=== PATIENT | female | born 1985 | race American Indian/Alaskan Native ===

== ENCOUNTER 2019-03-21 20:08 | Emergency (ER) | payer SELFPAY ==
[2019-03-21 20:28] VITALS: BP 129/80
--- NOTE | 2019-03-21 20:29 | Event Note ---
ED Screening Note Date of service: 03/21/19 Time: 20:26 ED Screening Note: 33 y/o female comes in for sharp chest pain since Wednesday. This initial assessment/diagnostic orders/clinical plan/treatment(s) is/are subject to change based on patients health status, clinical progression and re-assessment by fellow clinical providers in the ED. Further treatment and workup at subsequent clinical providers discretion. Patient/guardian urged not to elope from the ED as their condition may be serious if not clinically assessed and managed. Initial orders include:
[2019-03-21 21:14] LABS: Basophils % (Auto) 0.4 % (0.0-1.8); Eosinophils # (Auto) 0.1 K/mm3 (0.0-0.4); Eosinophils % (Auto) 1.7 % (0.0-4.3); Hematocrit 30.9 % (30.3-42.9); Hemoglobin 10.9 gm/dl (10.1-14.3); Lymphocytes # (Auto) 2.8 K/mm3 (1.2-5.4); Lymphocytes % (Auto) 47.4 % (13.4-35.0); Mean Corpuscular HGB Conc 35 % (30-34); Mean Corpuscular Volume 90 fl (79-97); Monocytes # (Auto) 0.5 K/mm3 (0.0-0.8); Monocytes % (Auto) 9.1 % (0.0-7.3); Platelet Count 208 K/mm3 (140-440); Red Blood Count 3.45 M/mm3 (3.65-5.03); Red Cell Distribution Width 11.9 % (13.2-15.2)
[2019-03-21 21:36] LABS: Alanine Aminotransferase 7 units/L (7-56); Albumin 4.5 g/dL (3.9-5); BUN/Creatinine Ratio 25; Blood Urea Nitrogen 15 mg/dL (7-17); Calcium 8.9 mg/dL (8.4-10.2); Hemolysis Index 6
[2019-03-21] MEDS ORDERED: NORCO 5/325 PO ONE (22:21)
--- NOTE | 2019-03-21 22:33 | XRay Report ---
CHEST 2 VIEWS INDICATION / CLINICAL INFORMATION: Chest Pain. COMPARISON: None available. FINDINGS: SUPPORT DEVICES: None. HEART / MEDIASTINUM: No significant abnormality. LUNGS / PLEURA: No significant pulmonary or pleural abnormality. No pneumothorax. ADDITIONAL FINDINGS: No significant additional findings. IMPRESSION: 1. No acute findings. Signer Name: Pio Peterson MD Signed: 03/21/2019 10:28 PM Workstation Name: [id number]
--- NOTE | 2019-03-21 23:02 | Emergency Department Report ---
ED General Adult HPI - General Chief complaint: Chest Pain Stated complaint: CHEST PAIN Time Seen by Provider: 03/21/19 20:25 Source: patient Mode of arrival: Ambulatory Limitations: No Limitations - History of Present Illness Initial comments: Patient is a 33-year-old -E[place]ian female who presents for right lateral chest wall pain times one week pain described as 5/10 sharp exacerbated by deep inspiration relieved by rest . He denies fall injury or trauma there is no wheezing no fever no shortness of breath no deformity no bruising Onset/Timin -: week(s) Location: chest (right lateral chest wall ) Radiation: flank Severity scale (0 -10): 0 Quality: stabbing Consistency: constant Improves with: rest Worsens with: other (inspiration) Associated Symptoms: chest pain, cough. denies: diaphoresis, fever/chills, headaches, loss of appetite, malaise Treatments Prior to Arrival: none - Related Data Previous Rx's Medication Instructions Recorded Last Taken Type Cyclobenzaprine [Flexeril] 10 mg PO TID PRN #30 tablet 03/21/19 Unknown Rx Menthol/Camphor [[place] 1 applicatio TP QID PRN #1 tube 03/21/19 Unknown Rx Ointment] Naproxen [Naprosyn TAB] 500 mg PO BID PRN #30 tablet 03/21/19 Unknown Rx Allergies Allergy/AdvReac Type Severity Reaction Status Date / Time No Known Allergies Allergy Verified 03/21/19 20:10 ED Review of Systems ROS: Stated complaint: CHEST PAIN Other details as noted in HPI Constitutional: denies: chills, fever Eyes: denies: eye pain, eye discharge, vision change ENT: congestion. denies: ear pain, throat pain Respiratory: cough. denies: shortness of breath, wheezing Cardiovascular: chest pain. denies: palpitations, dyspnea on exertion, orthopnea, edema, syncope, paroxysmal nocturnal dyspnea Endocrine: no symptoms reported Gastrointestinal: denies: abdominal pain, nausea, vomiting, diarrhea Genitourinary: denies: urgency, dysuria, discharge Musculoskeletal: denies: back pain, joint swelling, arthralgia, myalgia Skin: denies: rash, lesions Neurological: denies: headache, weakness, paresthesias Psychiatric: denies: anxiety, depression Hematological/Lymphatic: denies: easy bleeding, easy bruising ED Past Medical Hx - Social History Smoking Status: Never Smoker Substance Use Type: Alcohol, Marijuana - Medications Home Medications: Home Medications Medication Instructions Recorded Confirmed Last Taken Type Cyclobenzaprine [Flexeril] 10 mg PO TID PRN #30 tablet 03/21/19 Unknown Rx Menthol/Camphor [[place] 1 applicatio TP QID PRN #1 tube 03/21/19 Unknown Rx Ointment] Naproxen [Naprosyn TAB] 500 mg PO BID PRN #30 tablet 03/21/19 Unknown Rx ED Physical Exam - General Limitations: No Limitations General appearance: alert, in no apparent distress - Head Head exam: Present: atraumatic, normocephalic, normal inspection - Eye Eye exam: Present: normal appearance, PERRL, EOMI Pupils: Present: normal accommodation - ENT ENT exam: Present: normal orophraynx, mucous membranes moist, TM's normal bilaterally, normal external ear exam - Neck Neck exam: Present: normal inspection, full ROM. Absent: tenderness, meningismus, lymphadenopathy, thyromegaly - Respiratory Respiratory exam: Present: normal lung sounds bilaterally, chest wall tenderness (right lateral ). Absent: respiratory distress, wheezes, rhonchi, accessory muscle use, prolonged expiratory - Cardiovascular Cardiovascular Exam: Present: regular rate, normal rhythm, normal heart sounds. Absent: systolic murmur, diastolic murmur, rubs, gallop - GI/Abdominal GI/Abdominal exam: Present: soft, normal bowel sounds. Absent: distended, ten derness, guarding, rebound, rigid, mass, pulsatile mass - Rectal Rectal exam: Present: deferred - External exam: Present: other (deferred ) - Extremities Exam Extremities exam: Present: normal inspection, full ROM, normal capillary refill, calf tenderness. Absent: tenderness, pedal edema, joint swelling - Back Exam Back exam: Present: normal inspection, full ROM, rash noted. Absent: tenderness, CVA tenderness (R), CVA tenderness (L), muscle spasm, paraspinal tenderness, vertebral tenderness - Neurological Exam Neurological exam: Present: alert, oriented X3, CN II-XII intact, normal gait, reflexes normal - Psychiatric Psychiatric exam: Present: normal affect, normal mood - Skin Skin exam: Present: warm, dry, intact, normal color. Absent: rash ED Course Vital Signs 03/21/19 03/21/19 20:13 20:26 Temperature 97.9 F 97.9 F Pulse Rate 90 90 Respiratory 18 Rate Blood Pressure 129/86 129/80 O2 Sat by Pulse 100 100 Oximetry ED Medical Decision Making - Lab Data Result diagrams: 03/21/19 20:39 03/21/19 20:39 Lab Results 03/21/19 03/21/19 03/21/19 Range/Units 20:39 20:39 20:39 WBC 5.9 (4.5-11.0) K/mm3 RBC 3.45 L (3.65-5.03) M/mm3 Hgb 10.9 (10.1-14.3) gm/dl Hct 30.9 (30.3-42.9) % MCV 90 (79-97) fl MCH 32 (28-32) pg MCHC 35 H (30-34) % RDW 11.9 L (13.2-15.2) % Plt Count 208 (140-440) K/mm3 Lymph % (Auto) 47.4 H (13.4-35.0) % [place] % (Auto) 9.1 H (0.0-7.3) % Eos % (Auto) 1.7 (0.0-4.3) % Baso % (Auto) 0.4 (0.0-1.8) % Lymph # 2.8 (1.2-5.4) K/mm3 [place] # 0.5 (0.0-0.8) K/mm3 Eos # 0.1 (0.0-0.4) K/mm3 Baso # 0.0 (0.0-0.1) K/mm3 Seg Neutrophils % 41.4 (40.0-70.0) % Seg Neutrophils # 2.4 (1.8-7.7) K/mm3 Sodium 138 (137-145) mmol/L Potassium 3.6 (3.6-5.0) mmol/L Chloride 102.3 (98-107) mmol/L Carbon Dioxide 24 (22-30) mmol/L Anion Gap 15 mmol/L BUN 15 (7-17) mg/dL Creatinine 0.6 L (0.7-1.2) mg/dL Estimated GFR > 60 ml/min BUN/Creatinine Ratio 25 % Glucose 94 (65-100) mg/dL Calcium 8.9 (8.4-10.2) mg/dL Total Bilirubin 0.60 (0.1-1.2) mg/dL AST 16 (5-40) units/L ALT 7 (7-56) units/L Alkaline Phosphatase 60 (35-129) units/L Troponin T < 0.010 (0.00-0.029) ng/mL Total Protein 8.6 H (6.3-8.2) g/dL Albumin 4.5 (3.9-5) g/dL Albumin/Globulin Ratio 1.1 % Lipase 8 L (13-60) units/L HCG, Qual Negative (Negative) - EKG Data -: EKG Interpreted by Sd EKG shows normal: sinus rhythm, axis, intervals, QRS complexes, ST-T waves Rate: normal - EKG Data When compared to previous EKG there are: previous EKG unavailable Interpretation: normal EKG (EKG interp by ed attending no ST elevated mI normal ekg ) - Radiology Data Radiology results: report reviewed, image reviewed Ordering Physician: JORDI IYER Date of Service: 03/21/19 Procedure(s): XR chest routine 2V Accession Number(s): [id number] cc: JORDI IYER Fluoro Time In Minutes: CHEST 2 VIEWS INDICATION / CLINICAL INFORMATION: Chest Pain. COMPARISON: None available. FINDINGS: SUPPORT DEVICES: None. HEART / MEDIASTINUM: No significant abnormality. LUNGS / PLEURA: No significant pulmonary or pleural abnormality. No pneumothorax . ADDITIONAL FINDINGS: No significant additional findings. IMPRESSION: 1. No acute findings. Signer Name: Pio Peterson MD Signed: 03/21/2019 10:28 PM Workstation Name: [id number] Transcribed By: DOMINICK Dictated By: Pio Peterson MD Electronically Authenticated By: Pio Peterson MD Signed Date/Time: 03/21/19 7133 - Medical Decision Making This is chest wall pain , hear score is 0, JAIMIE score: 0, plan, nsaids muscle relaxant, anagesic balm pt will follow up with pcp in 2-3 days given referral to same, tp dc'd to home in stable condition at this time. Critical care attestation.: If time is entered above; I have spent that time in minutes in the direct care of this critically ill patient, excluding procedure time. ED Disposition Clinical Impression: Chest wall pain Disposition: - TO HOME OR SELFCARE Is pt being admited?: No Does the pt Need Aspirin: No Condition: Stable Instructions: Costochondritis (ED), Chest Pain (ED) Prescriptions: Cyclobenzaprine [Flexeril] 10 mg PO TID PRN #30 tablet PRN Reason: Muscle Spasm Naproxen [Naprosyn TAB] 500 mg PO BID PRN #30 tablet PRN Reason: Pain , Severe (7-10) Menthol/Camphor [[place] Ointment] 1 applicatio TP QID PRN #1 tube PRN Reason: pain [facility] [place] [Primary Care Provider] - 3-5 Days Forms: Work/School Release Form(ED) Time of Disposition: 23:10
== END 2019-03-21 23:23 | disposition home or self-care (01) ==
LOC: ED 20:08
DX: R07.89 Other chest pain (principal); F12.10 Cannabis abuse, uncomplicated; Z79.899 Other long term (current) drug therapy
CPT/HCPCS: 36415; 71046; 80053; 83690; 84484; 84703; 85025; 93005; 93010

== ENCOUNTER 2020-04-13 09:40 | Emergency (ER) | payer SELFPAY ==
[2020-04-13 09:48] VITALS: BP 127/77
== END 2020-04-13 11:40 | disposition left against medical advice (07) ==
LOC: ED 09:40
DX: R07.0 Pain in throat (principal); Z53.21 Procedure and treatment not carried out due to patient leaving prior to being seen by health care provider

== ENCOUNTER 2020-04-13 17:50 | Emergency (ER) | payer OTHER ==
[2020-04-13] MEDS ORDERED: ACETAMINOPHEN 325 MG/10.15 ML ORAL LIQD UNIT DOSE PO ONE (18:53)
[2020-04-13] MEDS ORDERED: LIDOCAINE VISCOUS 2% 15 ML ORAL LIQD PO ONE (19:01)
--- NOTE | 2020-04-13 19:01 | Event Note ---
ED Screening Note Date of service: 04/13/20 Time: 18:54 ED Screening Note: 34-year-old -Algerian female presents to the emergency room stating she feels like she has a fishbone stuck in her throat. Patient states that she had fish last night and felt that she had swallowed a bone. She states that she came in earlier today and left so she is come back to be reevaluated. Patient reports no past medical history currently takes no medications on a daily basis and has no known drug allergies. This initial assessment/diagnostic orders/clinical plan/treatment(s) is/are subject to change based on patients health status, clinical progression and re- assessment by fellow clinical providers in the ED. Further treatment and workup at subsequent clinical providers discretion. Patient/guardian urged not to elope from the ED as their condition may be serious if not clinically assessed and managed. Initial orders include:
[2020-04-13 19:09] VITALS: BP 110/64
[2020-04-13 20:54] LABS: HCG Qualitative,Urine Negative (Negative)
--- NOTE | 2020-04-13 22:14 | Emergency Department Report ---
ED General Adult HPI - General Stated complaint: SWOLLOWED FISH BONE Time Seen by Provider: 04/13/20 20:16 - History of Present Illness Initial comments: 34-year-old F [place]ian female was eating a fish sandwich last night around 8 PM she states that longer stuck in her throat she tried multiple home remedies to dislodge the bone but states she has a sensation that the bones still present presents emergency department for evaluation and treatment options ports no hemoptysis no hematemesis no hematochezia but feels her throat is very irritated and she had a mild voice changes but no shortness of breath. Reports no chest pain or palpitations. Radiation: non-radiation Severity scale (0 -10): 0 Quality: dull Consistency: constant Improves with: none Worsens with: none Associated Symptoms: denies: confusion, cough, fever/chills, loss of appetite, nausea/vomiting, shortness of breath, weakness - Related Data Previous Rx's Medication Instructions Recorded Last Taken Type Cyclobenzaprine [Flexeril] 10 mg PO TID PRN #30 tablet 03/21/19 Unknown Rx Menthol/Camphor [[place] 1 applicatio TP QID PRN #1 tube 03/21/19 Unknown Rx Ointment] Naproxen [Naprosyn TAB] 500 mg PO BID PRN #30 tablet 03/21/19 Unknown Rx Lidocaine Viscous 2% 5 ml PO Q4HR PRN #120 ml 04/14/20 Unknown Rx Pantoprazole Sodium [Protonix] 40 mg PO DAILY #10 memettkt 04/14/20 Unknown Rx Allergies Allergy/AdvReac Type Severity Reaction Status Date / Time No Known Allergies Allergy Verified 03/21/19 20:10 ED Review of Systems ROS: Stated complaint: SWOLLOWED FISH BONE Other details as noted in HPI Comment: All other systems reviewed and negative ED Past Medical Hx - Social History Smoking Status: Never Smoker - Medications Home Medications: Home Medications Medication Instructions Recorded Confirmed Last Taken Type Cyclobenzaprine [Flexeril] 10 mg PO TID PRN #30 tablet 03/21/19 Unknown Rx Menthol/Camphor [[place] 1 applicatio TP QID PRN #1 tube 03/21/19 Unknown Rx Ointment] Naproxen [Naprosyn TAB] 500 mg PO BID PRN #30 tablet 03/21/19 Unknown Rx Lidocaine Viscous 2% 5 ml PO Q4HR PRN #120 ml 04/14/20 Unknown Rx Pantoprazole Sodium [Protonix] 40 mg PO DAILY #10 emmettkt 04/14/20 Unknown Rx ED Physical Exam - General General appearance: alert, in no apparent distress - Head Head exam: Present: atraumatic, normocephalic - Eye Eye exam: Present: normal appearance, PERRL Pupils: Present: normal accommodation - ENT ENT exam: Present: normal exam, mucous membranes moist - Neck Neck exam: Present: normal inspection - Respiratory Respiratory exam: Present: normal lung sounds bilaterally. Absent: respiratory distress - Cardiovascular Cardiovascular Exam: Present: regular rate, normal rhythm. Absent: systolic murmur, diastolic murmur, rubs, gallop - GI/Abdominal GI/Abdominal exam: Present: soft, normal bowel sounds - Extremities Exam Extremities exam: Present: normal inspection - Back Exam Back exam: Present: normal inspection - Neurological Exam Neurological exam: Present: alert, oriented X3, CN II-XII intact - Psychiatric Psychiatric exam: Present: normal affect, normal mood. Absent: anxious, flat affect - Skin Skin exam: Present: warm, dry, intact, normal color. Absent: rash, cyanosis, diaphoretic, petechiae ED Course Vital Signs 04/13/20 19:09 Temperature 98.5 F Pulse Rate 74 Respiratory 16 Rate Blood Pressure 110/64 [Left] O2 Sat by Pulse 100 Oximetry ED Medical Decision Making - Radiology Data Radiology results: report reviewed [facility] [address] [place] [address] Cat Scan Report Signed Patient: JOSEFA SUN MR #: [id number] : 1985 Acct:[id number] Age/Sex: 34 / F ADM Date: 04/13/20 Loc: ED Attending Dr: Ordering Physician: JORDI ROBERTS Date of Service: 04/13/20 Procedure(s): CT neck wo con Accession Number(s): [id number] cc: JORDI ROBERTS CT NECK WITHOUT CONTRAST HISTORY: Swallowed fishbone COMPARISON: None. TECHNIQUE: Routine CT of the neck is performed without intravenous contrast. All CT scans at this location are performed using CT dose reduction for ALARA by means of automated exposure control. CONTRAST: None FINDINGS: Skull Base: No significant abnormality. Parotid, Carotid, Retropharyngeal, Prevertebral, Pharyngeal Mucosal, and Director Mortgage Spaces: No abnormal mass, enhancing lesion or other significant abnormality. Airway: Patent and without significant abnormality. Lymphatics: No lymphadenopathy. Vasculature: No significant abnormality. Osseous Structures: No significant abnormality Additional findings: None. IMPRESSION: 1. No appreciable radiopaque foreign bodies identified in the neck. Signer Name: Johny Barker MD Signed: 04/13/2020 11:30 PM Workstation Name: [id number] Transcribed By: MATIAS Dictated By: Johny Barker MD Electronically Authenticated By: Johny Barker MD Signed Date/Time: 04/15/20 1239 DD/ [id number] TD/TT: - Medical Decision Making 34-year-old female speaking in normal sentences normal swallowing no hemoptysis no hematemesis worried about having had swallowed a fishbone CT scan does not reveal any such issues. Patient is appears to have normal speech at the time of discharge and no limitations. Discussed with the possibility of a traumatic abrasion of the esophagus amount retained foreign body that has not been visualized and punctures as well CT scan is again did not reveal any acute com plications over time foreign bodies. Critical care attestation.: If time is entered above; I have spent that time in minutes in the direct care of this critically ill patient, excluding procedure time. ED Disposition Clinical Impression: Throat irritation Disposition: DC-01 TO HOME OR SELFCARE Is pt being admited?: No Does the pt Need Aspirin: No Condition: Stable Instructions: Esophageal Spasm (ED) Additional Instructions: Esophageal abrasions can cause a foreign body sensation that remains after the passage of a foreign object. If the patient is stable and tolerating oral intake, they can be reassessed within 12 to 24 hours, and if symptoms continue, then CT scan or endoscopy may be needed. Other conditions that might cause a foreign body sensation without a foreign body present include: Infection such as [place], herpes simplex virus (HSV), or cytomegalovirus (CMV) Esophagitis (acid reflux, pill esophagitis, eosinophilic esophagitis) Esophageal spasm Globus pharyngeus (also called globus hystericus) which is a sensation of a lump or foreign body in the throat of uncertain etiology. Again, if the patient is stable and tolerating oral intake then begin appr opriate treatment for the underlying condition and/or arrange follow-up. Prognosis Eighty percent to 90% of ingested foreign bodies will pass spontaneously within 3 to 7 days.[1] Children with esophageal injury from disc battery need short and long-term follow-up to look for complications related to erosion or perforation and esophageal stricture. Adults with food impactions have abnormalities 85% to 90% of the time and will need evaluation and treatment of the underlining abnormalities. Prescriptions: Lidocaine Viscous 2% 5 ml PO Q4HR PRN #120 ml PRN Reason: throat pain Pantoprazole Sodium [Protonix] 40 mg PO DAILY #10 emmettkt. Referrals: [facility] [Provider Group] - 3-5 Days PRIMARY CAREMD [Primary Care Provider] - 3-5 Days
--- NOTE | 2020-04-15 12:39 | Cat Scan Report ---
CT NECK WITHOUT CONTRAST HISTORY: Swallowed fishbone COMPARISON: None. TECHNIQUE: Routine CT of the neck is performed without intravenous contrast. All CT scans at this [facility] ation are performed using CT dose reduction for ALARA by means of automated exposure control. CONTRAST: None FINDINGS: Skull Base: No significant abnormality. Parotid, Carotid, Retropharyngeal, Prevertebral, Pharyngeal Mucosal, and Security Assurance Analyst Spaces: No abnorm al mass, enhancing lesion or other significant abnormality. Airway: Patent and without significant abnormality. Lymphatics: No lymphadenopathy. Vasculature: No significant abnormality. Osseous Structures: No significant abnormality Additional findings: None. IMPRESSION: 1. No appreciable radiopaque foreign bodies identified in the neck. Signer Name: Johny Barker MD Signed: 04/13/2020 11:30 PM Workstation Name: [id number]
== END 2020-04-14 03:15 | disposition home or self-care (01) ==
LOC: ED 17:50
DX: R07.0 Pain in throat (principal); Z79.899 Other long term (current) drug therapy
CPT/HCPCS: 70490; 81025

== ENCOUNTER 2021-03-04 05:56 | Day surgery (SDC) | payer OTHER ==
[2021-02-13 10:59] LABS: Blood Urea Nitrogen 10 mg/dL (7-17); Calcium 9.3 mg/dL (8.4-10.2); Hemolysis Index 1
[2021-02-13 11:03] LABS: BUN/Creatinine Ratio 17
--- NOTE | 2021-02-13 11:05 | Anesthesia Consultation ---
Anesthesia Consult and Med Hx Date of service: 02/20/21 - Airway Anesthetic Teeth Evaluation: Good ROM Head & Neck: Adequate Mental/Hyoid Distance: Adequate Mallampati Class: Class II Intubation Access Assessment: Good - Pre-Operative Health Status ASA Pre-Surgery Classification: ASA2 Proposed Anesthetic Plan: General - Pulmonary Hx Smoking: No Hx Sleep Apnea: No (BAKARI PRE SCREEN NEGATIVE) - Cardiovascular System Hx Hypertension: No Hx Heart Murmur: Yes (CAUSES NO PROBLEMS) - Central Nervous System Hx Psychiatric Problems: No - Gastrointestinal Hx Gastroesophageal Reflux Disease: Yes (No RX) - Hematic Hx Anemia: Yes ( WITH LOW WBC) Hx Sickle Cell Disease: No - Other Systems Hx Substance Use: Yes (MARIJUANA 4 X PER WEEK) Hx Cancer: No - Additional Comments Anesthesia Medical History Comments: +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 +Anemia/Low WBC-saw heme/onc and no records available. Reportedly advised to take iron and patient not taking it
[2021-02-13 11:53] LABS: Hematocrit 31.1 % (30.3-42.9); Hemoglobin 10.6 gm/dl (10.1-14.3); Mean Corpuscular HGB Conc 34 % (30-34); Mean Corpuscular Volume 93 fl (79-97); Platelet Count 209 K/mm3 (140-440); Red Blood Count 3.33 M/mm3 (3.65-5.03); Red Cell Distribution Width 12.7 % (13.2-15.2)
[~2021-03-04 05:56] MED LIST: ACETAMINOPHEN 500 MG TAB PO ONE; CELECOXIB 200 MG CAP PO NR; LACTATED RINGERS 1,000 ML IV SCH; MAGNESIUM OXIDE 400 MG TAB PO ONE; MIDAZOLAM 2 MG/2 ML INJ IV NR
[2021-03-04] MEDS ORDERED: ACETAMINOPHEN 500 MG TAB PO SCH (06:00)
[2021-03-04] MEDS ORDERED: LACTATED RINGERS 1,000 ML IV SCH (06:00)
[2021-03-04] MEDS ORDERED: MIDAZOLAM 2 MG/2 ML INJ IV NR (06:00)
[2021-03-04] MEDS ORDERED: GABAPENTIN 300 MG CAP PO NR (06:00)
[2021-03-04] MEDS ORDERED: SCOPOLAMINE TRANSDERMAL PATCH 72 HR TD NR (06:00)
[2021-03-04] MEDS ORDERED: ceFAZolin/STERILE WATER 2 GM/20 ML SYRINGE IV NR (07:00)
[2021-03-04] MEDS ORDERED: LIDOCAINE MPF (2%) 20 MG/1 ML VIAL 5 ML ONE (07:20)
[2021-03-04] MEDS ORDERED: propofoL 200 MG/20 ML VIAL IV ONE (07:20)
[2021-03-04] MEDS ORDERED: BUPIVACAINE/PF (0.5%) 5 MG/1 ML 30 ML VIAL INFILTRATI ONE ×2 (07:21→08:05)
[2021-03-04] MEDS ORDERED: fentaNYL 100 MCG/2 ML INJ ONE (07:21)
[2021-03-04] MEDS ORDERED: LIDOCAINE (1%) 10 MG/1 ML VIAL 20 ML MDV ONE (07:21)
[2021-03-04] MEDS ORDERED: MIDAZOLAM 2 MG/2 ML INJ ONE (07:21)
[2021-03-04] MEDS ORDERED: ONDANSETRON 4 MG/2 ML INJ ONE (07:21)
[2021-03-04] MEDS ORDERED: ROCURONIUM 50 MG/5 ML INJ IV ONE (07:22)
[2021-03-04] MEDS ORDERED: dexAMETHasone 20 MG/5 ML VIAL ONE (07:22)
[2021-03-04] MEDS ORDERED: SUCCINYLCHOLINE CHLORIDE 200 MG/10 ML INJ MDV ONE (07:22)
--- NOTE | 2021-03-04 07:31 | Anesthesia Day of Surgery ---
Anesthesia Day of Surgery - Day of Surgery Patient Examined: Yes Patient H&P Reviewed: Yes Patient is NPO: Yes Beta Blockers: No (Not prescribed) Cardiac Clearance: No (Healthy) Pulmonary Clearance: No (Healthy) Lino's Test: N/A
--- NOTE | 2021-03-04 07:33 | Anesthesia Consultation ---
Anesthesia Consult and Med Hx Date of service: 03/04/21 - Airway Anesthetic Teeth Evaluation: Good ROM Head & Neck: Adequate Mental/Hyoid Distance: Adequate Mallampati Class: Class II Intubation Access Assessment: Good - Pulmonary Exam CTA: Yes - Cardiac Exam Cardiac Exam: RRR - Pre-Operative Health Status ASA Pre-Surgery Classification: ASA2 Proposed Anesthetic Plan: General - Pulmonary Hx Smoking: No Hx Asthma: No Hx Respiratory Symptoms: No SOB: No COPD: No Home Oxygen Therapy: No Hx Pneumonia: No Hx Sleep Apnea: No (BAKARI PRE SCREEN NEGATIVE) - Cardiovascular System Hx Hypertension: No Hx Coronary Artery Disease: No Hx Heart Attack/AMI: No Hx Angina: No Hx Heart Murmur: Yes (CAUSES NO PROBLEMS) - Central Nervous System Hx Psychiatric Problems: No - Gastrointestinal Hx Gastroesophageal Reflux Disease: Yes (No RX) - Hematic Hx Anemia: Yes ( WITH LOW WBC) Hx Sickle Cell Disease: No - Other Systems Hx Alcohol Use: Yes (WINE RARELY) Hx Substance Use: Yes (MARIJUANA 4 X PER WEEK) Hx Cancer: No - Additional Comments Anesthesia Medical History Comments: +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 +Anemia/Low WBC-saw heme/onc and no records available. Reportedly advised to take iron and patient not taking it
[2021-03-04] MEDS ORDERED: ONDANSETRON 4 MG/2 ML INJ IV PRN (07:56)
[2021-03-04] MEDS ORDERED: oxyCODONE /ACETAMINOPHEN 5-325MG TAB PO PRN (07:56)
[2021-03-04] MEDS ORDERED: LIDOCAINE (1%) 10 MG/1 ML VIAL 20 ML MDV INFILTRATI ONE (08:05)
[2021-03-04] MEDS ORDERED: SODIUM CHLORIDE 0.9% IRR 1,500 ML BOTTLE IR ONE (08:06)
[2021-03-04] MEDS ORDERED: PHENYLEPHRINE 10 MG/1 ML INJ SDV ONE (08:17)
[2021-03-04] MEDS ORDERED: GLYCOPYRROLATE 0.4 MG/2 ML INJ ONE (08:23)
[2021-03-04] MEDS ORDERED: NEOSTIGMINE 10MG/10 ML INJ MDV ONE (08:23)
--- NOTE | 2021-03-04 09:00 | Short Stay Summary ---
Short Stay Documentation Date of service: 03/04/21 - History Principal diagnosis: symptomatic cholelithiasis H&P: obtained from office - Allergies and Medications Current Medications: Allergies latex Allergy (Verified 03/04/21 07:48) Itching Home Medications Medication Instructions Recorded Confirmed Last Taken Type Famotidine [Pepcid] 40 mg PO PRN PRN 02/13/21 03/04/21 01/28/21 History Hydroxychloroquine [Plaquenil] 200 mg PO QDAY 02/13/21 03/04/21 01/28/21 History traMADoL [Ultram] 50 mg PO PRN PRN 02/13/21 03/04/21 01/28/21 History Vitamin D3 1 cap PO DAILY 02/27/21 03/04/21 01/28/21 History Active Medications Acetaminophen (Acetaminophen 500 Mg Tab) 1,000 mg PO PREOP VERITO Stop: 03/04/21 20:00 Last Admin: 03/04/21 07:10 Dose: 1,000 mg Documented by: Cefazolin Sodium (Cefazolin/Sterile Water 2 Gm/20 Ml Syringe) 2 gm IV PREOP NR Stop: 03/04/21 20:00 Gabapentin (Gabapentin 300 Mg Cap) 300 mg PO PREOP NR Stop: 03/04/21 20:00 Last Admin: 03/04/21 07:10 Dose: 300 mg Documented by: Hydromorphone HCl (Hydromorphone 1 Mg/1 Ml Inj) 0.5 mg IV Q10MIN PRN PRN Reason: Pain , Severe (7-10) Stop: 03/04/21 23:00 Lactated Ringer's (Lactated Ringers) 1,000 mls @ 125 mls/hr IV DIRECT VERITO Last Admin: 03/04/21 07:00 Dose: 125 mls/hr Documented by: Midazolam HCl (Midazolam 2 Mg/2 Ml Inj) 2 mg IV PREOP NR Stop: 03/04/21 20:00 Ondansetron HCl (Ondansetron 4 Mg/2 Ml Inj) 4 mg IV ONCE PRN PRN Reason: Nausea And Vomiting Stop: 03/04/21 12:00 Oxycodone/Acetaminophen (Oxycodone /Acetaminophen 5-325mg Tab) 1 tab PO ONCE PRN PRN Reason: Pain, Moderate (4-6) Stop: 03/04/21 12:00 Scopolamine (Scopolamine Transdermal Patch 72 Hr) 1 each TD PREOP NR Stop: 03/04/21 20:00 Last Admin: 03/04/21 07:10 Dose: 1 each Documented by: - Brief post op/procedure progress note Date of procedure: 03/04/21 Pre-op diagnosis: symptomatic cholelithaisis Post-op diagnosis: same Procedure: laparoscopic cholecystectomy Anesthesia: GETA, local Findings: distended gallbladder with moderate size stone at neck Surgeon: BIBIANA POLLARD Embossing Machine Operator: EBONY ORDAZ Estimated blood loss: minimal Pathology: list (gallbladder) Specimen disposition: to lab Condition: stable - Hospital course Hospital course: Pt observed in PACU and discharged to home in stable condition when criteria met - Disposition Condition at discharge: Good Short Stay Discharge Plan Activity: other (no heavy lifting, no driving if taking prescription pain medications) Diet: regular Wound: open to air Additional Instructions: SEE PRINTED DISCHARGE PAPERS Follow up with: FINA RHODES MD [Primary Care Provider] - 7 Days BIBIANA POLLARD DO [Staff Physician] - 14 Days Prescriptions: HYDROcodone/APAP 5-325 [[place] 5/325] 1 each PO Q6HR PRN #20 tablet PRN Reason: Pain , Severe (7-10)
[2021-03-04] MEDS: HYDROmorphone 1 MG/1 ML INJ IV PRN ×2 (09:05→09:30)
[2021-03-04 10:38] VITALS: BP 153/88
--- NOTE | 2021-03-04 12:42 | Operative Report ---
Operative Report Operative Report: Date of procedure: 03/04/21 Pre-op diagnosis: symptomatic cholelithaisis Post-op diagnosis: same Procedure: laparoscopic cholecystectomy Anesthesia: GETA, local Findings: distended gallbladder with moderate size stone at neck Surgeon: BIBIANA POLLARD Cable Tender: EBONY ORDAZ Estimated blood loss: minimal Pathology: list (gallbladder) Specimen disposition: to lab Condition: stable Hospital course: Pt observed in PACU and discharged to home in stable condition when criteria met HPI an indication: 35-year-old female who presented to the surgery clinic with complaints of intermittent right upper quadrant abdominal pain. An ultrasound was performed which showed stone in the gallbladder without evidence of cholecystitis or bile duct dilatation. It was recommended that the patient undergo cholecystectomy. All risks, benefits, alternatives to surgery were discussed in detail and questions answered. Consent was obtained for laparoscopic, possible open cholecystectomy, possible cholangiogram. Procedure in detail: The patient was identified in the preoperative area and taken back to the operating room, placed on the operating room table in supine position. After anesthesia was induced, the abdomen was prepped and draped in usual sterile fashion and timeout was performed. Local anesthetic was infiltrated into all of the skin incision sites. Using an 11 blade, a supraumbilical incision was made through which a Veress needle was inserted. The position of the veress needle was confirmed with the saline drop test and the abdomen was then insufflated to 15 mmHg without incident. The veress needle was then removed and a 5 mm Optiview trocar placed through this incision. The abdomen was then inspected and there was no underlying injury to any of the abdominal contents. An additional 12 mm subxyphoid port, and 2, 5mm RUQ ports were then placed under direct visualization. The patient was then placed into reverse Trendelberg and tilted to the left. The gallbladder was visualized and was distended. The fundus was grasped and retracted cephalad and above the liver. The infindibulum was retracted laterally. The cystic duct and artery were carefully skeletonized using blunt dissection with [place] and hook electrocautery. The critical view was successfully obtained and the cystic artery and duct were the only 2 structures seen entering the gallbladder. Three clips were then placed on the proximal aspect of the cystic duct and one clip distally, and 2 clips on the cystic artery proximally and one distal. The cystic duct and cystic artery were then transected in between the clips using EndoShears. The gallbladder was dissected from the liver bed using hook electrocautery. The gallbladder was placed into a Endo Catch bag and removed from the abdomen via the 12mm port. Upon inspection the gallbladder contained a medium stone at the neck. The gallbladder fossa was checked for hemostasis which was very carefully ensured. The clips on the cystic duct and artery were visualized and intact. The patient was then placed into neutral position. The 12 mm port fascia was closed with interrupted 0 Vicryl sutures using the Tereso Damico device. The remaining ports were removed under direct visualization and the abdomen desufflated. Skin incisions were closed with 4-0 Monocryl subcuticular stitches and skin glue. All skin incisions were once again infiltrated with local anesthetic. At the end case all sponge, instrument, sharp counts were correct 2. The patient was awoken from anesthesia, extubated, and taken to PACU in stable condition.
--- NOTE | 2021-03-04 14:25 | Post Anesthesia Evaluation ---
- Post Anesthesia Evaluation Patient Participated: Yes Airway Patent: Yes Stable Respiratory Function: Yes Nausea/Vomiting: No Temp > 96.8F: Yes Pain Manageable: Yes Adequeate Hydration: Yes Anesthesia Complications: No
== END 2021-03-04 10:30 | disposition home or self-care (01) ==
LOC: OR 05:56
PROVIDERS: ATTEND Surgery
DX: K80.10 Calculus of gallbladder with chronic cholecystitis without obstruction (principal); G43.909 Migraine, unspecified, not intractable, without status migrainosus; Z20.822 Contact with and (suspected) exposure to COVID-19; K21.9 Gastro-esophageal reflux disease without esophagitis; F41.9 Anxiety disorder, unspecified; Z91.040 Latex allergy status; Z79.899 Other long term (current) drug therapy; Z72.89 Other problems related to lifestyle; Z98.890 Other specified postprocedural states; Z86.2 Personal history of diseases of the blood and blood-forming organs and certain disorders involving the immune mechanism
CPT/HCPCS: 36415; 47562; 80048; 81025; 85027; 88304; J0330; J0690; J1100; J1170; J2250; J2370; J2405; J2704; J2710; J3010; J7120; U0003